=== PATIENT | female | born 1965 | race Caucasian/White ===

== ENCOUNTER 2017-03-02 13:49 | Emergency (ER) | payer OTHER, BC ==
[~2017-03-02] VITALS: Ht 167.6 cm; Wt 77.3 kg
[~2017-03-02 13:49] MED LIST: METOPROL TAR25 MG PO; PREDNISONE10 MG PO; TYLENOL # 31 TA1 PO; VITAMIN B-12500 MCG PO; XANAX0.25 MG PO
[2017-03-02 15:35] VITALS: BP 160/94
== END 2017-03-02 15:40 | disposition home or self-care (01) | DRG 914 ==
LOC: ED 13:49
DX: S09.8XXA Other specified injuries of head, initial encounter (principal); R51 Headache; R07.89 Other chest pain; R11.0 Nausea; V49.49XA Driver injured in collision with other motor vehicles in traffic accident, initial encounter; Y92.414 Local residential or business street as the place of occurrence of the external cause

== ENCOUNTER 2023-10-07 07:15 | Emergency (ER) | payer OTHER ==
[~2023-10-07] VITALS: Ht 167.6 cm; Wt 90.0 kg
[2023-10-07] MEDS ORDERED: PERCOCET 5/321 COMBO PO (07:27)
[2023-10-07] MEDS ORDERED: BACLOFEN10 MG PO (07:28)
[2023-10-07 08:05] VITALS: BP 156/99
[2023-10-07 09:41] VITALS: BP 162/95
[2023-10-07] MEDS ORDERED: MEDDOSEPAK PO (09:42)
[2023-10-07] MEDS ORDERED: MELOXICAM7.5 MG PO (09:42)
[2023-10-07 09:54] VITALS: BP 162/95
== END 2023-10-07 09:54 | disposition home or self-care (01) | DRG 605 ==
LOC: ED 07:15
DX: S80.02XA Contusion of left knee, initial encounter (principal); S80.12XA Contusion of left lower leg, initial encounter; W10.9XXA Fall (on) (from) unspecified stairs and steps, initial encounter